=== PATIENT | female | born 1965 | race Hispanic/Latino ===

== ENCOUNTER 2018-05-27 07:23 | Observation (INO) | payer MEDICARE ==
[2018-05-24 16:11] LABS: BASOPHILS % (AUTO) 0.7 % (0.0-5.0); EOSINOPHILS % (AUTO) 1.2 % (0.0-8.0); HEMATOCRIT 38.1 % (36-48); LYMPHOCYTES % (AUTO) 32.9 % (21.0-51.0); MEAN CORPUSCULAR HEMOGLOBIN 29.6 pg (27.0-33.0); MEAN CORPUSCULAR HGB CONC 33.5 g/dL (32.0-36.0); MEAN CORPUSCULAR VOLUME 88.2 fL (79-99); MONOCYTES % (AUTO) 4.8 % (3.0-13.0); NEUTROPHILS % (AUTO) 60.4 % (40.0-77.0); NUCLEATED RED BLOOD CELLS 0.1 % (0.0-0.19); PLATELET COUNT (AUTO) 154 K/uL (130-400); RED BLOOD CELL COUNT(AUTO) 4.32 MIL/uL (4.00-5.50); RED CELL DISTRIBUTION WIDTH 13.7 % (11.0-15.5)
[2018-05-24 16:13] VITALS: BP 117/61
[2018-05-24 16:31] LABS: CREATININE 0.8 mg/dL (0.5-1.5); POTASSIUM 3.7 mmol/L (3.5-5.1)
[2018-05-24 16:35] LABS: INR 0.97 (0.85-1.15); PARTIAL THROMBOPLASTIN TIME 31.2 SEC (26.3-35.5); PROTHROMBIN TIME 10.2 SEC (9.6-11.6)
[2018-05-24 17:08] LABS: APPEARANCE,URINE Clear (CLEAR); BILIRUBIN,URINE Negative (NEGATIVE); COLOR,URINE Yellow (YELLOW); GLUCOSE, URINE (UA) Negative (NEGATIVE); KETONES,URINE Negative (NEGATIVE); LEUKOCYTE ESTERASE ,URINE Small (NEGATIVE); NITRATE,URINE Negative (NEGATIVE); OCCULT BLOOD,URINE Negative (NEGATIVE); PROTEIN,URINE Negative (NEGATIVE)
[2018-05-24 17:20] LABS: BACTERIA,URINE Rare /HPF (None Seen); RBC,URINE 0-1 /HPF (0-1)
[2018-05-24 17:21] LABS: SQUAMOUS EPITHELIAL CELL,UR Rare /HPF (0-2)
--- NOTE | 2018-05-24 18:01 | NUR ---
LABS ABNORMAL UA REPORTED TO DR. Betito BURGESS , NO FURTHER ORDERS GIVEN
[2018-05-27] VITALS (23 sets, daily range): BP systolic 87–128; BP diastolic 36–80
[~2018-05-27] VITALS: Ht 149.9 cm; Wt 97.9 kg
[~2018-05-27 07:23] MED LIST: ATOR-2 PO; TYL3 PO
--- NOTE | 2018-05-27 07:56 | NUR ---
POTENTIAL FOR INFECTION: SHAVED LEFT KNEE / LEG AND WIPED WITH JOY: 2% CHLORHEXIDINE GLUCONATE CLOTH PATIENTS PRE-OP SKIN PREP PER JOSE DANIEL TREADWELL.
[2018-05-27] MEDS ORDERED: SODIUM CHLORIDE 0.9% 1000ML 1,000 ML IV ONE (08:18)
[2018-05-27] MEDS ORDERED: TRANEXAMIC ACID 1000MG/10ML IV ONE (08:26)
[2018-05-27] MEDS ORDERED: CEFAZOLIN SODIUM 1 GM VIAL ONE (08:26)
[2018-05-27] MEDS: CEFAZOLIN SODIUM 1 GM VIAL IVP SCH ×3 (08:30→17:39)
[2018-05-27] MEDS ORDERED: METOCLOPRAMIDE 10 MG/2 ML VIAL ONE (08:42)
[2018-05-27] MEDS ORDERED: ACETAMINOPHEN EXTRA STRENGTH 500 MG TABLET ONE (08:42)
[2018-05-27] MEDS ORDERED: KETOROLAC TROMETHAMINE 15MG/ML ONE (08:42)
[2018-05-27] MEDS ORDERED: CELECOXIB 200 MG CAP ONE (08:43)
[2018-05-27] MEDS ORDERED: OXYCODONE HCL 10 MG TAB.SR.12H PO ONE (08:43)
[2018-05-27] MEDS ORDERED: SUCCINYLCHOLINE 200MG/10ML SYR ONE (10:15)
[2018-05-27] MEDS ORDERED: ONDANSETRON HCL 4 MG/2 ML VIAL ONE (10:15)
[2018-05-27] MEDS ORDERED: DEXAMETHASONE SOD PHOSPHATE 10MG/ML 1ML VIAL ONE (10:15)
[2018-05-27] MEDS ORDERED: LIDOCAINE PF 2% 5ML ABBOJECT ONE (10:15)
[2018-05-27] MEDS ORDERED: GLYCOPYRROLATE 1 MG/5 ML SYRINGE ONE (10:16)
[2018-05-27] MEDS ORDERED: PROPOFOL 10 MG/ML 20ML VIAL IV ONE (10:16)
[2018-05-27] MEDS ORDERED: MIDAZOLAM HCL 1 MG/ML 2ML VIAL ONE (10:16)
[2018-05-27] MEDS ORDERED: NEOSTIGMINE 5MG/5ML SYR IV ONE (10:16)
[2018-05-27] MEDS ORDERED: ROCURONIUM 10MG/1ML SYR 10 MG/ML ML ONE (10:16)
[2018-05-27] MEDS ORDERED: FENTANYL CITRATE PF 50 MCG/1 ML 2ML VIAL ONE ×2 (10:16→11:42)
[2018-05-27] MEDS ORDERED: ROPIVACAINE 0.5% 5MG/ML 30ML IJ ONE (10:36)
[2018-05-27] MEDS ORDERED: EPHEDRINE SULFATE 50 MG/ML AMPULE ONE (11:33)
[2018-05-27] MEDS ORDERED: SODIUM CHLORIDE 0.9% 1000ML 1,000 ML IV SCH (12:31)
[2018-05-27] MEDS ORDERED: POTASSIUM CHLORIDE 10% ELIXIR 20 MEQ/15 ML UDCUP PO PRN (12:45)
[2018-05-27] MEDS ORDERED: ONDANSETRON HCL 4 MG/2 ML VIAL IVP PRN (12:45)
[2018-05-27] MEDS ORDERED: CALCIUM CARBONATE 500 MG TABLET PO PRN (12:45)
[2018-05-27] MEDS ORDERED: TEMAZEPAM 15 MG CAPSULE PO PRN (12:45)
[2018-05-27] MEDS ORDERED: LIDOCAINE HCL-MPF 1% 2ML VIAL IVP PRN (12:45)
[2018-05-27] MEDS ORDERED: FERROUS FUMARATE 324 MG TABLET PO PRN (12:45)
[2018-05-27] MEDS ORDERED: POTASSIUM CHLORIDE 20MEQ/100ML 100 ML IV PRN (12:45)
[2018-05-27] MEDS ORDERED: DiphenhydrAMINE HCL 50 MG/ML VIAL IVP PRN (12:45)
[2018-05-27] MEDS ORDERED: MEPERIDINE-PF 25 MG/ML SYG ONE ×2 (13:31→13:40)
--- NOTE | 2018-05-27 16:04 | NUR ---
IA / REFERRAL IA WITH SON AT BEDSIDE, PT VERY SLEEPY; LIVES WITH SON; HAS WKR AND W CHAIR- NO PROVIDER OR HH SERVICES- HAD ORDER FOR HH BUT SON REQUESTING PT GO TO A [facility] FOR A WEEK OR TOW; DISCUSSED FACILITES- [facility] SELECTED. CALLT ODR. BURGESS, ORDER ERECD, CALL TO [place]- REFERRAL SENT TO [facility]
[2018-05-27] MEDS: INSULIN HUMULIN R 100 UNIT/ML 3ML SQ SCH ×2 (16:30→21:28)
[2018-05-27] MEDS: KETOROLAC TROMETHAMINE 15MG/ML IV PRN (17:41)
[2018-05-27] MEDS: PREGABALIN 25 MG CAP PO SCH (20:47)
[2018-05-27] MEDS: FAMOTIDINE 20MG TAB 20 MG TAB PO SCH (20:47)
[2018-05-27] MEDS: CELECOXIB 200 MG CAP PO SCH (20:47)
[2018-05-27] MEDS ORDERED: ATORVASTATIN CALCIUM 40 MG TABLET PO SCH (21:00)
[2018-05-28 00:12] VITALS: BP 120/62
[2018-05-28] MEDS: CEFAZOLIN SODIUM 1 GM VIAL IVP SCH (01:21)
[2018-05-28] MEDS: TRAMADOL HCL 50 MG TABLET PO PRN ×2 (01:26→10:21)
[2018-05-28 03:10] VITALS: BP 131/85
[2018-05-28] MEDS: HYDROCODONE/ACETAMINOPHEN 7.5/325 MG 15 ML UDCUP PO PRN ×2 (03:46→08:49)
[2018-05-28 04:23] LABS: HEMATOCRIT 35.7 % (36-48); MEAN CORPUSCULAR HEMOGLOBIN 29.8 pg (27.0-33.0); MEAN CORPUSCULAR HGB CONC 33.7 g/dL (32.0-36.0); MEAN CORPUSCULAR VOLUME 88.6 fL (79-99); PLATELET COUNT (AUTO) 148 K/uL (130-400); RED BLOOD CELL COUNT(AUTO) 4.03 MIL/uL (4.00-5.50); RED CELL DISTRIBUTION WIDTH 13.5 % (11.0-15.5); WHITE BLOOD COUNT (AUTO) 11.9 K/uL (4.8-10.8)
[2018-05-28 04:44] LABS: CREATININE 0.7 mg/dL (0.5-1.5); POTASSIUM 3.4 mmol/L (3.5-5.1)
[2018-05-28] MEDS: POTASSIUM CHLORIDE 20 MEQ ERTAB PO PRN ×2 (06:03→10:57)
[2018-05-28] MEDS: INSULIN HUMULIN R 100 UNIT/ML 3ML SQ SCH ×3 (06:32→16:30)
[2018-05-28] MEDS: KETOROLAC TROMETHAMINE 15MG/ML IV PRN (07:44)
[2018-05-28 08:06] VITALS: BP 129/78
[2018-05-28] MEDS: FAMOTIDINE 20MG TAB 20 MG TAB PO SCH (08:41)
[2018-05-28] MEDS: CELECOXIB 200 MG CAP PO SCH (08:41)
[2018-05-28] MEDS: PREGABALIN 25 MG CAP PO SCH (08:41)
[2018-05-28] MEDS ORDERED: POLYETHYLENE GLYCOL 3350 17 GM POWD.PACK PO SCH (09:00)
[2018-05-28] MEDS ORDERED: ASPIRIN 325 MG TABLET PO SCH (09:00)
--- NOTE | 2018-05-28 09:00 | NUR ---
CHANGE OF DC PLAN? NOT IN NETWORK WITH [facility]. NEED TO CHANGE LOCATION OR CONSIDER HOME HEALTH INSTEAD. FAMIY AT BEDSIDE. PT UNWILLING TO MAKE DECISION. FAMILY CONTACTED SON WHO WILL CALL BACK. PT STATES SON WILL BE HERE AFTER 7 PM. CM ASKING FOR DECISION BEFORE THAT.
[2018-05-28 11:54] VITALS: BP 117/71
[2018-05-28] MEDS ORDERED: HYDR473S51 PO (13:08)
[2018-05-28] MEDS ORDERED: ASPI-1012 PO (13:08)
[2018-05-28] MEDS ORDERED: FAMO20TA8 PO (13:10)
--- NOTE | 2018-05-28 15:00 | NUR ---
DECISION FOR [facility]. DR. BURGESS HERE, STATES PT HAS TO DECIDE AND BE DISCHARGED TODAY. PT MADE AWARE, CONSENT TO SEND INFO TO [facility]. [facility] CONTACTED. AUTH RECD SHORTLY THEREAFTER
--- NOTE | 2018-05-28 15:29 | NUR ---
DISCHARGE DISCHARGE TEACHING DONE WITH PATIENT, VERBALIZED UNDERSTANDING. NO NOTED SOB OR DISTRESS. NEW MEDICATION ADMINISTRATION TEACHING DONE WITH PATIENT, VERBALIZED UNDERSTANDING. PT AWARE OF NEED TO ATTEND DR. BURGESS APPOINTMENT. BRITTANY DRESSING IS DRY AND INTACT DUE TO CHANGE 06/03 ORDERED. BRITTANY DRESSING TEACHING DONE WITH PATIENT USING TEACHBACK METHOD, VERBALIZED UNDERSTANDING. IV REMOVED, CATH TIP INTACT. REPORT GIVEN TO SHAY LIMA, PENDING TO BE TRANSFERRED OUT VIA FACILITY VEHICLE.
--- NOTE | 2018-05-28 19:55 | NUR ---
DISCHARGE PATIENT DISCHARGED TO [facility] VIA WHEEL CHAIR ALL BELONGINGS AND INSTRUCTIONS AT SIDE.
--- NOTE | 2018-05-29 13:51 | NUR ---
VITA DIspo Discharged to [facility] Addendum: 05/29/18 at 1351 by HELDER GUSTAFSON CM Amended: Links added.
[2018-05-30] MEDS ORDERED: BISACODYL 10 MG SUPP.RECT RC PRN (12:45)
== END 2018-05-28 19:55 ==
LOC: DAH 07:23 → DAHIP 07:24 → 4AH 14:29 → EDSTATUS 14:30
PROVIDERS: ADMIT Orthopaedic Surgery; ATTEND Orthopaedic Surgery
DX: M17.12 Unilateral primary osteoarthritis, left knee (principal); E11.9 Type 2 diabetes mellitus without complications; E78.00 Pure hypercholesterolemia, unspecified; G89.29 Other chronic pain; Z90.49 Acquired absence of other specified parts of digestive tract; Z83.3 Family history of diabetes mellitus; Z82.49 Family history of ischemic heart disease and other diseases of the circulatory system; Z88.8 Allergy status to other drugs, medicaments and biological substances; Z79.01 Long term (current) use of anticoagulants
CPT/HCPCS: 27447; 36415 ×2; 80048 ×2; 81001; 82948 ×6; 85025; 85027; 85610; 85730; 96372; 96374; 96375; 96376; 97039 ×2; 97116 ×2; 97161; A4218; A4600; A4649 ×5; A4930 ×2; A9272; C1763; C1776; G0378 ×37; G8978; G8979; G8980; G8981; G8982; G8983; J0330; J0690 ×4; J1100; J1815; J1885 ×3; J2001; J2175 ×2; J2250; J2405; J2704; J2710; J2765; J2795; J3010 ×2; J3490 ×3; J7030; J7120